=== PATIENT | male | born 1960 | race Caucasian/White ===

== ENCOUNTER 2017-05-21 21:20 | Emergency (ER) | payer MEDICARE ==
[2014-03-29 12:51] VITALS: BMI 26.6
[~2017-05-21 21:20] MED LIST: HYDROCODONE-APA1 TAB PO; NEXIUM40 MG PO; PRAVACHOL40 MG PO; VIIBRYD40 MG PO
[2017-05-21 23:05] LABS: BASOPHILS 0.5 % (0-2); EOSINOPHILS 6.4 % (0-7); HEMATOCRIT 42.3 % (42.0-54.0); HEMOGLOBIN 13.6 g/dL (13.5-17.5); IMMATURE GRANULOCYTES 0.1 % (0-5); LYMPHOCYTES 12.9 % (15-50); MCH 28.1 pg (26.0-34.0); MCHC 32.2 g/dL (31.0-37.0); MCV 87.4 fL (80.0-100.0); MEAN PLATELET VOLUME 10.8 fL (7.4-10.4); MONOCYTES 9.1 % (2-11); PLATELET COUNT 233 10x3/uL (130-400); RBC 4.84 10x6/uL (4.20-6.10); RDW 14.9 % (11.5-14.5); WBC 7.9 10x3/uL (4.8-10.8)
[2017-05-21 23:29] LABS: ALBUMIN 3.7 g/dL (3.4-5.0); ANION GAP 11.6 mmol/L (8-16); BILIRUBIN - TOTAL 0.29 mg/dL (0.2-1.3); CALCIUM 8.6 mg/dL (8.5-10.1); CARBON DIOXIDE 28.9 mmol/L (21.0-32.0); CREATININE - SERUM 1.1 mg/dL (0.6-1.3); POTASSIUM - SERUM 3.5 mmol/L (3.5-5.1); PROTEIN - SERUM 7.6 g/dL (6.4-8.2)
== END 2017-05-22 00:08 | disposition home or self-care (01) ==
LOC: D.ER 21:20
PROVIDERS: Physician Assistant Medical
DX: S00.03XA Contusion of scalp, initial encounter (principal); W19.XXXA Unspecified fall, initial encounter; Y93.89 Activity, other specified; Y92.89 Other specified places as the place of occurrence of the external cause; R42 Dizziness and giddiness; F17.200 Nicotine dependence, unspecified, uncomplicated; I10 Essential (primary) hypertension; Z87.820 Personal history of traumatic brain injury

== ENCOUNTER 2017-12-15 23:04 | Outpatient (CLI) | payer MEDICARE ==
--- NOTE | ~2017-12-15 | HEMODYNAMI ---
PATIENT:REJI BURLESON MEDICAL RECORD: [id number] : 58 [facility]# [id number] ADMISSION DATE: 12/16/17 Generatedon:12/16/201712:43 Patient name: REJI BURLESON Patient #: [id number] SSN: [id number] : 1960 Date of study: 12/16/2017 Page: Of Hemodynamic Procedure Report Patient Data Patient Demographics Procedure consent was obtained First Name: REJI Gender: Male Last Name: SARAH BETH : 1960 Middle Initial: JOCELYNE Age: 57 year(s) Patient #: [id number] Race: SSN: [id number] Additional ID: [id number] Contact details Address: [address] [place] [address] State: [place] City: [facility] Zip code: [address] Admission Admission Data Admission Date: 12/16/2017 Admission Time: 2:59 Arrival Date: 12/16/2017 Arrival Time: 2:59 Admit Source: Other Insurance Payor: Medicare Room #: D.E15 Lab Results Lab Result Date: 12/16/2017 Lab Result Time: 0:00 Biochemistry Name Units Result Min Max BUN mg/dl 15 --(--*-)-- 7 18 Creatinine mg/dl 1.1 --(--*-)-- 0.6 1.3 CBC Name Units Result Min Max Hemoglobin g/dl 12.9 -*(----)-- 13.5 17.5 Coagulation Name Units Result Min Max INR units 0.99 --(-*--)-- 0.85 1.17 PT sec 12.7 --(-*--)-- 11.6 15 PTT sec 26.6 --(*---)-- 22.8 39.4 Procedure Procedure Types Cath Procedure Diagnostic Procedure C [facility] w/Coronaries Sedation Charges Moderate Sedation up to 15 minutes PCI Procedure Coronary Stent Coronary Stent Initial Procedure Description Procedure Date Procedure Date: 12/16/2017 Procedure Start Time: 12:26 Procedure End Time: 12:40 Procedure Staff Name Function Gerry Young MD Performing Physician Katie Mariee RT Monitor Summer Pitts RN Nurse Lary Chavarria RT Scrub Procedure Data Cath Procedure Fluoroscopy Diagnostic fluoroscopy Total fluoroscopy Time: 3.7 time: 3.7 min min Diagnostic fluoroscopy Total fluoroscopy dose: dose: 1007 mGy 1007 mGy Contrast Material Contrast Material Type Amount (ml) Isovue 300 88 Entry Location Entry Primary Successful Side Size Upsize Upsize Entry Closure Succes sful Closure Location (Fr) 1 (Fr) 2 (Fr) Remarks Device Remarks Femoral Right 5 Fr 6 Fr Exoseal artery Short Estimated blood loss: 5 ml Diagnostic catheters Device Type Used For End Catheter Placement MULTIPACK Pigtail 5 Fr LV Angiography catheter MULTIPACK JL 4.0 5Fr Left Coronary catheter Angiography MULTIPACK 3DRC 5Fr Right Coronary catheter Angiography Procedure Complications No complications Procedure Medications Medication Administration Route Dosage Oxygen NC 2 l/min Lidocaine 2% added to field 20 Heparin Flush Bag added to field 2 bags (1000units/500ml NS) 0.9% NaCl I.V. 100 ml/hr Versed I.V. 1 mg Fentanyl I.V. 50 mcg Ativan 1 mg Heparin Bolus I.V. 4000 units Versed I.V. 1 mg Fentanyl I.V. 50 mcg Hemodynamics Rest HGB: 12.9 (g/dl) Heart Rate: 90 (bpm) Pressure Samples Time Site Value (mmHg) Purpose Heart Use Rate(bpm) 12:27 LV 93/15,22 Snapshot 87 Snapshots Pre Cath Intra NCS Post Cath Vital Signs Time Heart Resp SPO2 etCO2 NIBP (mmHg) Rhythm Pain Sedation Rate (ipm) (%) (mmHg) Status Level (bpm) 12:10:00 83 12 100 0 159/107(138) NSR 0 (11) 10(A) , No pain 12:14:20 87 15 98 9.8 147/109(123) NSR 0 (11) 10(A) , No pain 12:18:34 88 16 98 0 149/110(134) NSR 0 (11) 10(A) , No pain 12:22:50 89 15 98 25.6 143/106(119) NSR 0 (11) 9(A) , No pain 12:26:51 89 16 98 13.5 130/108(126) NSR 0 (11) 9(A) , No pain 12:31:01 88 15 97 9 143/93(133) NSR 0 (11) 9(A) , No pain 12:35:13 89 15 97 10.5 149/111(128) NSR 0 (11) 9(A) , No pain 12:40:23 95 17 96 28.6 140/95(115) NSR 0 (11) 10(A) , No pain Medications Time Medication Route Dose Verified Delivered Reason Notes Effectiveness by by 11:56:54 Oxygen NC 2 Gerry Buffie used for l/min Hannah Pitts RN procedure 11:57:00 Lidocaine 2% added 20ml Gerry Gerry for local to vial Hannah Young MD anesthetic field 11:57:06 Heparin Flush added 2 Gerry Gerry used for Bag to bags Hannah Young MD procedure (1000units/500ml field NS) 11:57:15 0.9% NaCl I.V. 100 Gerry Patelie Per physician ml/hr Hannah Pitts RN 12:18:11 Versed I.V. 1 mg Gerry Buffie for sedation Hannah Pitts RN 12:18:16 Fentanyl I.V. 50 Gerry Buffie for sedation mcg Hannah Pitts RN 12:25:53 Ativan IV 1 mg Gerry Buffie Per physician for Hannah Pitts RN possible DT's per spouse. 12:32:56 Heparin Bolus I.V. 4000 Gerry Buffie for verifi ed units Hannah Pitts RN anticoagulation with dr young 12:33:18 Versed I.V. 1 mg Gerry Buffie for sedation Hannah Pitts RN 12:33:22 Fentanyl I.V. 50 Gerry Buffie for sedation mcg Hannah Pitts RN Procedure Log Time Note 11:40:59 Lab Result : BUN 15 mg/dl 11:40:59 Lab Result : PT 12.7 sec 11:40:59 Lab Result : Hemoglobin 12.9 g/dl 11:40:59 Lab Result : Creatinine 1.1 mg/dl 11:40:59 Lab Result : INR 0.99 units 11:40:59 Lab Result : PTT 26.6 sec 11:41:36 Diagnostic Cath status Elective 11:41:38 Katie Mariee RT(R) sent for patient. Start room use. 11:41:39 Time tracking: Regular hours 11:41:44 Plan of Care:Hemodynamics will remain stable., Cardiac rhythm will remain stable., Comfort level will be maintained., Respiratory function will remain adequate., Patient/ family verbilizes understanding of procedure., Procedure tolerated without complication., Recovers from procedure without complications.. 11:50:33 Informed consent obtained and on chart 11:50:50 Admit Source: Other 11:50:52 Arrival Date: 12/16/2017 2:59:00 AM 11:51:22 Insurance Payor : Medicare 11:56:54 Oxygen 2 l/min NC was administered by Summer Pitts RN; used for procedure; 11:57:00 Lidocaine 2% 20ml vial added to field was administered by Gerry Young MD; for local anesthetic; 11:57:06 Heparin Flush Bag (1000units/500ml NS) 2 bags added to field was administered by Gerry Young MD; used for procedure; 11:57:15 0.9% NaCl 100 ml/hr I.V. was administered by Summer Pitts RN; Per physician; 12:08:42 Patient received from ED to CCL 2 Alert and oriented. Tansferred to table in Supine position. 12:08:46 Warm blankets applied, and gwen hugger turned on for patient comfort. 12:08:46 Correct patient and procedure confirmed by team. 12:08:48 ECG and BP/O2 sat monitors applied to patient. 12:08:50 Vital chart was started 12:08:52 Baseline sample Acquired. 12:08:59 Rhythm: sinus rhythm 12:09:01 Full Disclosure recording started 12:09:05 H&P Date Dictated: 12/16/2017 New H&P dictated by physician.. 12:09:06 Pre-procedure instructions explained to patient. 12:09:07 Pre-op teaching completed and patient verbalized understanding. 12:09:08 Family in waiting room. 12:09:10 Patient NPO since Midnight. 12:09:19 Is the patient allergic to Iodine/contrast media? No. 12:09:20 Was the patient premedicated? No 12:09:22 Is patient on blood thinner?Yes 12:09:24 Patient diabetic? No. 12:09:26 Previous problem with sedation/anesthesia? No ? 12:09:30 Snore? Yes 12:09:32 Sleep apnea? No 12:09:33 Deviated septum? No 12:09:34 Opens mouth fully? Yes 12:09:34 Sticks out tongue? Yes 12:09:38 Airway obstruction? No ? 12:09:41 Dentures? No ? 12:09:46 Pre procedure: right dorsailis pedis pulse 1+ Palpable, but thready & weak; easily obliterated 12:09:48 Pre procedure: left dorsailis pedis pulse 1+ Palpable, but thready & weak; easily obliterated 12:09:53 Patient pain scale 0/10 ?. 12:10:25 IV patent on arrival in left antecubital with 0.9% NaCl at [facility]. 12:10:27 Lab results completed and on chart. 12:10:33 Right groin area was prepped with chlora-prep and draped in sterile fashion 12:10:34 Alarms reviewed by R. N. 12:10:34 Sharps counted by scrub and verified by R.N. 12:16:00 Physician arrived 12:16:01 --------ALL STOP TIME OUT------ 12:16:01 Final Timeout: patient, procedure, and site verified with staff and physician. All members of the team are in agreement. 12:16:03 Right groin site verified by team. 12:16:05 Physical assessment completed. ASA score P 2 - A patient with mild systemic disease as per Gerry Young MD. 12:16:08 Sedation plan: IV Moderate Sedation Medication:Versed, Fentanyl 12:16:16 Use device set Femoral Dx 12:16:17 ACIST Syringe (93160) opened to sterile field. 12:16:22 Bag Decanter (2002S) opened to sterile field. 12:16:23 Medline Cath Pack (FRDT10770) opened to sterile field. 12:16:23 SHEATH 5FR [place] (QWN874) opened to sterile field. 12:16:24 DIAGNOSTIC WIRE .035 260cm J wire (891629) opened to sterile field. 12:16:25 ACIST Hand Control (81251) opened to sterile field. 12:16:26 ACIST Manifold (03981) opened to sterile field. 12:16:27 DIAGNOSTIC Multipack 5Fr catheter set (DG8425) opened to sterile field. 12:18:11 Versed 1 mg I.V. was administered by Summer Pitts RN; for sedation; 12:18:16 Fentanyl 50 mcg I.V. was administered by Summer Pitts RN; for sedation; 12:20:32 Zero performed for pressure channel P1 12:25:53 Ativan 1 mg IV was administered by Summer Pitts RN; Per physician; for possible DT's per spouse. 12:26:07 Procedure started. 12:26:12 Local anesthetic to right femoral artery with Lidocaine 2% by Gerry Young MD.INITIAL ACCESS ONLY 12:26:23 A 5 Fr sheath was inserted into the Right Femoral artery 12:26:36 A MULTIPACK Pigtail 5 Fr catheter was advanced over the wire and used for LV Angiography. 12:27:39 LV hemodynamics recorded. 12:27:40 LV gram done using SETH 12::43 Injector settings: Ml/sec: 5, Volume: 15, 12:27:53 EF : 40 % 12:27:59 Catheter removed. 12:28:10 A MULTIPACK JL 4.0 5Fr catheter was advanced over the wire and used for Left Coronary Angiography. 12:28:49 LCA angiography performed. 12::53 Injector settings: Ml/sec: 3, Volume: 6, 12:30:30 Catheter removed. 12:30:37 A MULTIPACK 3DRC 5Fr catheter was advanced over the wire and used for Right Coronary Angiography. 12:31:32 RCA angiography performed. 12:31:35 Injector settings: Ml/sec: 3, Volume: 6, 12:31:41 Catheter removed. 12:31:48 Proceeding to intervention. 12:32:09 SHEATH 6FR [place] (MRX654) opened to sterile field. 12:32:10 INFLATOR Merit BasixCompak (KN5892) opened to sterile field. 12:32:42 GUIDE 6FR XB 4.0 catheter ([id number]) opened to sterile field. 12:32:44 CHOICE PT Extra Support 182cm wire ([id number]) opened to sterile field. 12:32:56 Heparin Bolus 4000 units I.V. was administered by Summer Pitts RN; for anticoagulation; verified with dr young 12:33:10 Sheath upsized to a 6 Fr Short. 12:33:15 6 Fr xb 4 guide catheter was inserted over the wire 12:33:18 Versed 1 mg I.V. was administered by Summer Pitts RN; for sedation; 12:33:21 choice pt wire advanced. 12:33:22 Fentanyl 50 mcg I.V. was administered by Summer Pitts RN; for sedation; 12:35:54 Inflation Number: 1 A INTEGRITY RX 2.75 x 14 stent ([id number]) was prepped and advanced across the Mid CX. The stent was deployed at 19 MALCOLM for 0:10 (min:sec). 12:36:03 Stent catheter was removed intact over wire. 12:36:04 Wire removed. 12:36:05 Guide catheter removed. 12:36:17 EXOSEAL 6Fr (EX600) opened to sterile field. 12:37:56 Sheath removed intact; hemostasis achieved with Exoseal to the Right Femoral artery. 12:37:57 Procedure ended.(Physican Out) 12:38:14 Fluoroscopy time 03.70 minutes. 12:38:27 Fluoroscopy dose: 1007 mGy 12:38:27 Flurop Dose total: 1007 12:38:31 Contrast amount:Isovue 300 88ml. 12:38:33 Sharps counted by scrub and verified by R.N. 12:38:34 Insertion/operative site no bleeding no hematoma. 12:38:40 Post-op/insertion site Right Femoral artery dressed using a 4 x 4 and Tegaderm. 12:38:43 Post right femoral artery:stable 12:38:47 Post procedure rhythm: unchanged. 12:38:51 Estimated blood loss: 5 ml 12:38:52 Post procedure instruction explained to patient.Patient verbalizes understanding. 12:38:53 Patient needs reinforcement of post procedure teaching. 12:39:10 Procedure type changed to Cath procedure, Diagnostic procedure, LHC, LHC w/Coronaries, Sedation Charges, Moderate Sedation up to 15 minutes, PCI procedure, Coronary Stent, Coronary Stent Initial 12:39:11 Procedure and supply charges have been captured, reviewed, submitted and are correct. 12:39:15 Procedure Complication : No complications 12:39:17 Vital chart was stopped 12:39:17 See physician's report for complete and final results. 12:39:28 Report given to Med II. 12:39:57 Patient transfered to Pre/Post Procedure Room with Stretcher. 12:39:59 Procedure ended. 12:39:59 Full Disclosure recording stopped 12:40:06 ACC-PCI Only Patient was given prescriptions, or instructed by Gerry Young MD to start/continue the following medications upon discharge: Plavix 12:40:08 End room use (Document Last) Intervention Summary Intervention Notes Time ActionType Lesion and Equipment Action# Pressure Duration Attributes Used 12:35:54 Place stent Mid CX INTEGRITY RX 1 19 00:10 2.75 x 14 stent ([id number]) Device Usage Item Name Manufacture Quantity Catalog Number Hospital Part Current Mini mal Lot# / Charge Number Stock Stock Serial# Code ACIST Acist 1 87599 505595 477024 031250 20 Syringe Medical (50637) Systems Inc Bag Decanter Microtek 1 2001S 096002 38794 831332 5 (2001S) Medical Inc. Medline Cath Cardinal 1 [id number] 234364 00807 157258 5 Pack Health ([id number]) SHEATH 5FR Terumo 1 ADC766 982193 673221 760296 40 [place] (OIZ605) DIAGNOSTIC St Jeremy 1 087116 577393 761693 689988 30 WIRE .035 260cm J wire (478281) ACIST Hand Acist 1 43782 572759 064218 653523 5 Control Medical (51909) Systems Inc ACIST Acist 1 79271 656487 274416 310274 5 Manifold Medical (19789) Systems Inc DIAGNOSTIC Cardinal 1 FW0229 818506 93848 644128 30 Multipack Health 5Fr catheter set (EZ0908) MULTIPACK Cardinal 1 759912 5 Pigtail 5 Fr Health catheter MULTIPACK JL Cardinal 1 771776 5 4.0 5Fr Health catheter MULTIPACK Cardinal 1 966775 5 3DRC 5Fr Health catheter SHEATH 6FR Terumo 1 YSH824 735970 634890 707565 40 [place] (RCH090) INFLATOR Merit 1 EY3560 463517 554163 469398 15 [employer]tafield Technology Medical BasixCompak (HY1771) GUIDE 6FR XB Cardinal 1 [id number] 955064 078632 384504 2 4.0 catheter Health (38017007) CHOICE PT Scurry 1 [id number] 471716 191884 471933 5 Extra Scientific Support 182cm wire ([id number]) INTEGRITY RX Medtronic 1 [id number] 458588 894296 994910 5 [id number] 2.75 x 14 stent ([id number]) EXOSEAL 6Fr Cardinal 1 EX600 924358 696871 984967 10 (EX600) Health Signature Audit Barto Stage Time Signature Unsigned Intra-Procedure 12/16/2017 Katie Mariee 12:43:48 PM RT(R) Signatures Monitor : Katie Mariee RT Signature : Date : Time : [id number] [place] [address]
--- NOTE | ~2017-12-15 | OP ---
PATIENT NAME: REJI BURLESON MEDICAL RECORD: [id number] :58 LOCATION:D.CAT ADMISSION DATE: SURGEON: ANASTACIA DAVIS MD DATE OF OPERATION: 12/16/2017 PROCEDURES: 1. PTCA stent left circumflex. 2. Left heart catheterization. 3. Selective coronary angiography. 4. Left ventriculogram. INDICATION: Angina and coronary artery disease. DESCRIPTION OF PROCEDURE: After informed consent was obtained and after detailed description of risks, benefits as well as alternative therapies, the patient elected to proceed with angiogram and angioplasty. The right femoral area was prepped and draped in normal sterile fashion. Right femoral artery was cannulated via modified Seldinger technique with placement of 6-[place] sheath. All catheters exchanged through this sheath. FINDINGS: The left ventriculogram was performed in standard 30-degree SETH view, reveals apical hypokinesis. Overall ejection fraction 35% to 40%. SELECTIVE CORONARY ANGIOGRAPHY: 1. Left main is with no significant angiographic disease. 2. Left anterior descending has a 95% stenosis in the mid vessel. 3. The left circumflex has 80% stenosis in the mid distal vessel. 4. Right coronary artery has 90% stenosis followed by 95% stenosis. PTCA STENT OF LEFT CIRCUMFLEX: The stent used was a 2.75 x 14 mm Integrity. Result was 0% residual stenosis. OVERALL IMPRESSION: Successful percutaneous transluminal angioplasty stent of the left circumflex going from 80% initial stenosis to 0% residual. PLAN: PTCA stent of the LAD and RCA in the near future. TRANSINT:[id number] Voice Confirmation ID: [id number] DOCUMENT ID: [id number] ANASTACIA DAVIS MD at 1056 CC: [id number] DICTATION DATE: 01/12/18 1057 ACUTE SPECIALIST: 01/12/18 1303 DEP CLI 12/16/17 [place] [id number]
[2017-12-15 23:31] LABS: HEMATOCRIT 42.5 % (42.0-54.0); HEMOGLOBIN 12.9 g/dL (13.5-17.5); LYMPHOCYTES 10.4 % (15-50); MCH 24.1 pg (26.0-34.0); MCHC 30.4 g/dL (31.0-37.0); MCV 79.3 fL (80.0-100.0); MEAN PLATELET VOLUME 9.8 fL (7.4-10.4); NEUTROPHILS 78.5 % (40-80); PLATELET COUNT 197 10x3/uL (130-400); RBC 5.36 10x6/uL (4.20-6.10); RDW 16.9 % (11.5-14.5); WBC 9.5 10x3/uL (4.8-10.8)
[2017-12-15 23:37] LABS: APTT 26.6 SECONDS (22.8-39.4); INR 0.99 (0.85-1.17); PROTIME 12.7 SECONDS (11.6-15.0)
[2017-12-15 23:38] LABS: D-DIMER-QUANTITATIVE 0.41 ug/mLFEU (0.20-0.54)
[2017-12-15 23:41] LABS: ALKALINE PHOSPHATASE 118 U/L (46-116); ALT (SGPT) 32 U/L (10-68); CALC OSMOLALITY 278 mosm/kg (275-300); CALCIUM 9.2 mg/dL (8.5-10.1); CARBON DIOXIDE 22.9 mmol/L (21.0-32.0); CHLORIDE - SERUM 100 mmol/L (98-107); CREATININE - SERUM 1.1 mg/dL (0.6-1.3); GLUCOSE 132 mg/dL (74-106); POTASSIUM - SERUM 3.4 mmol/L (3.5-5.1); PROTEIN - SERUM 8.1 g/dL (6.4-8.2); SODIUM 138 mmol/L (136-145); UREA NITROGEN 15 mg/dL (7-18); eGFR NON AFRICAN AMERICAN 73 mL/min (90-120)
[2017-12-15 23:57] LABS: AMYLASE - SERUM 184 U/L (25-115); CHOL - HDL RATIO 4.1 ratio (2.3-4.9); CHOLESTEROL, TOTAL 268 mg/dL (0-200); CKMB 4.8 U/L (0.0-3.6); CREATINE KINASE 268 UL (21-232); HDL CHOLESTEROL 65 mg/dL (32-96); LDL CHOLESTEROL 151 mg/dL (0-100); LDL-HDL RATIO 2.3 ratio (1.5-3.5); LIPASE 186 U/L (73-393); PRO BNP 690 pg/mL (0-125); TRIGLYCERIDE 262 mg/dL (30-200)
[2017-12-15 23:59] LABS: TROPONIN-I 0.422 ng/mL (0.000-0.060)
[2017-12-16 00:45] LABS: UDS - AMPHET NEGATIVE QUAL (NEGATIVE); UDS - BARB NEGATIVE QUAL (NEGATIVE); UDS - BENZO NEGATIVE QUAL (NEGATIVE); UDS - COCAINE NEGATIVE QUAL (NEGATIVE); UDS - OPIATE NEGATIVE QUAL (NEGATIVE); UDS - PCP NEGATIVE QUAL (NEGATIVE); UDS - THC POSITIVE QUAL (NEGATIVE)
[2017-12-16 04:22] LABS: CKMB 9.9 U/L (0.0-3.6); CREATINE KINASE 281 UL (21-232)
[2017-12-16 04:28] LABS: TROPONIN-I 1.134 ng/mL (0.000-0.060)
[2017-12-16 08:27] VITALS: BMI 26.6
[2017-12-16 09:20] LABS: BASOPHILS 0.5 % (0-2); EOSINOPHILS 2.3 % (0-7); HEMATOCRIT 38.9 % (42.0-54.0); HEMOGLOBIN 11.8 g/dL (13.5-17.5); IMMATURE GRANULOCYTES 0.1 % (0-5); LYMPHOCYTES 12.2 % (15-50); MCH 24.6 pg (26.0-34.0); MCHC 30.3 g/dL (31.0-37.0); MEAN PLATELET VOLUME 11.3 fL (7.4-10.4); MONOCYTES 9.8 % (2-11); NEUTROPHILS 75.1 % (40-80); PLATELET COUNT 219 10x3/uL (130-400); RDW 17.1 % (11.5-14.5); WBC 9.5 10x3/uL (4.8-10.8)
[2017-12-16 09:29] LABS: ANION GAP 13.8 mmol/L (8-16); CARBON DIOXIDE 25.8 mmol/L (21.0-32.0); CREATININE - SERUM 1.2 mg/dL (0.6-1.3); POTASSIUM - SERUM 3.6 mmol/L (3.5-5.1)
[2017-12-16 10:46] LABS: CKMB 57.5 U/L (0.0-3.6); CREATINE KINASE 582 UL (21-232); TROPONIN-I 4.179 ng/mL (0.000-0.060)
[2017-12-16] MEDS ORDERED: PLAVIX75 MG PO (13:08)
== END 2017-12-16 17:20 | disposition home or self-care (01) ==
LOC: OBSVTIME → D.ER 23:04 → D.CATH 23:04 → D.EDHOLD 12-16 02:59 → D.ER 12-16 02:59 → OBSVTIME 12-16 02:59 → D.SDCHOLD 12-16 11:38 → D.EDHOLD 12-16 11:38 → EDSTATUS 12-16 12:30 → D.EDHOLD 12-16 17:20 → D.CATH 12-16 17:20
PROVIDERS: Family Medicine; Internal Medicine Interventional Cardiology
DX: I24.9 Acute ischemic heart disease, unspecified (principal); R07.9 Chest pain, unspecified; I10 Essential (primary) hypertension; Z01.812 Encounter for preprocedural laboratory examination

== ENCOUNTER → 2018-03-11 14:45 | Outpatient (CLI) | payer MEDICARE ==
[~2018-03-11 14:45] MED LIST changes: +PLAVIX75 MG PO
== END | disposition home or self-care (01) ==
LOC: D.LABREF 14:45
DX: L98.8 Other specified disorders of the skin and subcutaneous tissue (principal)

== ENCOUNTER 2018-06-10 08:06 | Outpatient (CLI) | payer MEDICARE ==
[~2018-06-10] VITALS: Ht 177.8 cm; Wt 78.2 kg
--- NOTE | ~2018-06-10 | HEMODYNAMI ---
PATIENT:REJI BURLESON MEDICAL RECORD: [id number] : 58 LOCATION:D.CAT ADMISSION DATE: 06/10/18 Generatedon:06/10/201810:40 Patient name: REJI BURLESON Patient #: [id number] SSN: [id number] : 1960 Date of study: 06/10/2018 Page: Of Hemodynamic Procedure Report Patient Data Patient Demographics Procedure consent was obtained First Name: REJI Gender: Male Last Name: SARAH BETH : 1960 [facility] Initial: JOCELYNE Age: 58 year(s) Patient #: [id number] Race: SSN: [id number] Additional ID: [id number] Contact details Address: [address] [place] [address] State: [place] City: [facility] Zip code: [address] Past Medical History Allergies Allergen Reaction Date Comments Reported Other allergy 06/10/2018 effexor Admission Admission Data Admission Date: 06/10/2018 Admission Time: 8:06 Procedure Procedure Types Cath Procedure Diagnostic Procedure [facility] w/Coronaries PCI Procedure Coronary Stent Coronary Stent Initial PTCA PTCA Initial Procedure Description Procedure Date Procedure Date: 06/10/2018 Procedure Start Time: 10:12 Procedure End Time: 10:39 Procedure Staff Name Function Gerry Young MD Performing Physician Sujit Jackson RT Looseleaf Binder Coverer Lary Chavarria RT Monitor Summer Pitts RN Nurse Heriberto Glez RN Nurse Katie Mariee RT Scrub Procedure Data Cath Procedure Fluoroscopy Diagnostic fluoroscopy Total fluoroscopy Time: time: 10.3 min 10.3 min Diagnostic fluoroscopy Total fluoroscopy dose: 953 dose: 953 mGy mGy Contrast Material Contrast Material Type Amount (ml) Isovue 300 130 Entry Location Entry Primary Successful Side Size Upsize Upsize Entry Closure Succes sful Closure Location (Fr) 1 (Fr) 2 (Fr) Remarks Device Remarks Femoral Right 6 Fr Exoseal artery Short Estimated blood loss: 10 ml Diagnostic catheters Device Type Used For End Catheter Placement MULTIPACK Pigtail 5 Fr Procedure catheter MULTIPACK JL 4.0 5Fr Procedure catheter MULTIPACK 3DRC 5Fr Procedure catheter Procedure Complications No complications Procedure Medications Medication Administration Route Dosage 0.9% NaCl I.V. 100 ml/hr Oxygen etCO2 Nasal cannula 2 l/min Heparin Flush Bag added to field 2 bags (1000units/500ml NS) Lidocaine 2% added to field 20 Versed I.V. 1 mg Fentanyl I.V. 50 mcg Heparin Bolus I.V. 4000 units Hemodynamics Rest Heart Rate: 85 (bpm) Snapshots Pre Cath Intra NCS Post Cath Vital Signs Time Heart Resp SPO2 etCO2 NIBP (mmHg) Rhythm Pain Sedation Rate (ipm) (%) (mmHg) Status Level (bpm) 9:21:14 87 16 96 126/94(107) NSR 0 (11) 10(A) , No pain 9:25:30 77 14 96 134/92(114) NSR 0 (11) 10(A) , No pain 9:29:44 79 20 96 134/96(105) NSR 0 (11) 10(A) , No pain 9:33:59 84 26 97 140/99(105) NSR 0 (11) 10(A) , No pain 9:38:16 86 22 97 134/99(111) NSR 0 (11) 10(A) , No pain 9:42:35 85 21 96 28.6 134/97(105) NSR 0 (11) 10(A) , No pain 9:46:53 85 21 97 19.6 133/95(110) NSR 0 (11) 10(A) , No pain 9:51:13 81 14 95 33.1 124/88(102) NSR 0 (11) 10(A) , No pain 9:55:29 80 11 95 0 122/77(100) NSR 0 (11) 10(A) , No pain 9:59:45 76 12 95 0 123/84(100) NSR 0 (11) 10(A) , No pain 10:03:57 73 11 95 0 123/81(96) NSR 0 (11) 10(A) , No pain 10:08:11 75 12 96 0 123/83(97) NSR 0 (11) 10(A) , No pain 10:12:23 78 16 97 31.6 121/89(114) NSR 0 (11) 9(A) , No pain 10:16:37 78 13 95 33.1 130/88(114) NSR 0 (11) 9(A) , No pain 10:20:55 79 12 96 16.5 123/86(101) NSR 0 (11) 9(A) , No pain 10:25:07 78 12 97 0 121/89(103) NSR 0 (11) 10(A) , No pain 10:29:17 81 13 96 31.6 132/93(106) NSR 0 (11) 10(A) , No pain 10:33:37 83 13 98 19.5 130/90(111) NSR 0 (11) 10(A) , No pain 10:37:55 80 14 98 29.3 130/91(111) NSR 0 (11) 10(A) , No pain Medications Time Medication Route Dose Verified Delivered Reason Notes Effectiveness by by 9:43:14 0.9% NaCl I.V. 100 Heriberto Heriberto Per physician ml/hr Amaris Glez RN RN 9:43:25 Oxygen etCO2 2 Heriberto Heriberto Per physician Nasal l/min Amaris Glez cannula RN RN 9:43:35 Heparin Flush added 2 Heriberto Heriberto used for Bag to bags Amaris Glez procedure (1000units/500ml field DUNN RN NS) 9:43:45 Lidocaine 2% added 20ml Heriberto Heriberto for local to vial Amaris Glez anesthetic field DUNN RN 10:12:20 Versed I.V. 1 mg Heriberto Heriberto for sedation Amaris Glez RN RN 10:12:29 Fentanyl I.V. 50 Heriberto Heriberto for sedation mcg Amaris Glez RN RN 10:19:05 Heparin Bolus I.V. 4000 Heriberto Heriberto for units Amaris Glez anticoagulation RN wastewater project manager Log Time Note 9:19:41 Diagnostic Cath status Elective 9:19:43 Sujit CARDOZA(R) sent for patient. Start room use. 9:19:45 Time tracking: Regular hours (M-F 7:00 - 5:00) 9:19:49 Plan of Care:Hemodynamics will remain stable., Cardiac rhythm will remain stable., Comfort level will be maintained., Respiratory function will remain adequate., Patient/ family verbilizes understanding of procedure., Procedure tolerated without complication., Recovers from procedure without complications.. 9:19:55 Patient received from Pre/Post Procedure Room to CCL 3 Alert and oriented. Tansferred to table in Supine position. 9:19:58 Warm blankets applied, and gwen hugger turned on for patient comfort. 9:19:58 Correct patient and procedure confirmed by team. 9:20:00 Signed procedure consent form obtained from patient. 9:20:01 ECG and BP/O2 sat monitors applied to patient. 9:20:02 Vital chart was started 9:20:04 Baseline sample Acquired. 9:20:10 Rhythm: sinus rhythm 9:20:12 Full Disclosure recording started 9:20:26 H&P Date Dictated: 06/03/2018 Within 30 days and on chart., H&P Addendum completed by physician on day of procedure. (MUST COMPLETE FOR ALL OUTPATIENTS). 9:20:27 Pre-procedure instructions explained to patient. 9:20:30 Family in waiting room. 9:20:32 Patient NPO since Midnight. 9:20:53 Patient allergic to Other allergyeffexor 9:20:56 Is the patient allergic to Iodine/contrast media? No. 9:20:57 Was the patient premedicated? Yes 9:20:58 Is patient on blood thinner?Yes 9:21:03 ACC The patient was administered the following blood thiners within the last 24 hours: ACCPlavix 9:23:16 Patient diabetic? No. 9:23:25 Snore? Yes 9:23:26 Sleep apnea? No 9:23:34 Dentures? No ? 9:23:40 Patient pain scale 0/10 ?. 9:24:18 IV patent on arrival in left forearm with 0.9% NaCl at [facility]. 9:24:23 Lab results completed and on chart. 9:24:28 Right groin area was prepped with chlora-prep and draped in sterile fashion 9::29 Alarms reviewed by R. N. 9:24:29 Sharps counted by scrub and verified by R.N. 9:24:31 Physician paged 9:43:14 0.9% NaCl 100 ml/hr I.V. was administered by Heriberto Glez RN; Per physician; 9:43:25 Oxygen 2 l/min etCO2 Nasal cannula was administered by Heriberto Glez RN; Per physician; 9:43:35 Heparin Flush Bag (1000units/500ml NS) 2 bags added to field was administered by Heriberto Glez RN; used for procedure; 9:43:45 Lidocaine 2% 20ml vial added to field was administered by Heriberto Glez RN; for local anesthetic; 9:47:41 Zero performed for pressure channel P1 9:47:54 Zero performed for pressure channel P1 10::54 Physician arrived 10::54 --------ALL STOP TIME OUT------ 10::55 Final Timeout: patient, procedure, and site verified with staff and physician. All members of the team are in agreement. 10:11:58 Right groin site verified by team. 10:12:03 Physical assessment completed. ASA score P 2 - A patient with mild systemic disease as per Gerry Young MD. 10:12:07 Sedation plan: IV Moderate Sedation Medication:Versed, Fentanyl 10:12:15 Use device set Femoral Dx 10:12:20 Versed 1 mg I.V. was administered by Heriberto Glez RN; for sedation; 10:12:21 Procedure started. 10:12:29 Fentanyl 50 mcg I.V. was administered by Heriberto Glez RN; for sedation; 10:12:39 Local anesthetic to right femoral artery with Lidocaine 2% by Gerry Young MD.INITIAL ACCESS ONLY 10:12:49 A 6 Fr Short sheath was inserted into the Right Femoral artery 10:12:52 ACIST Syringe (72989) opened to sterile field. 10:12:52 Bag Decanter (2002) opened to sterile field. 10:12:52 Medline Cath Pack ([id number]) opened to sterile field. 10:12:53 DIAGNOSTIC WIRE .035 260cm J wire (595849) opened to sterile field. 10:12:54 ACIST Hand Control (53358) opened to sterile field. 10:12:54 ACIST Manifold (44526) opened to sterile field. 10:12:56 DIAGNOSTIC Multipack 5Fr catheter set (CG8789) opened to sterile field. 10:12:56 Tegaderm 4 x 4 (1626W) opened to sterile field. 10:12:57 PERCUTANEOUS ENTRY 19GA needle opened to sterile field. 10:13:53 A MULTIPACK Pigtail 5 Fr catheter was advanced over the wire and used for Procedure. 10:13:56 LV angiography performed. 10:14:04 EF : 30 % 10:14:09 Catheter removed. 10:14:18 A MULTIPACK JL 4.0 5Fr catheter was advanced over the wire and used for Procedure. 10:14:27 SHEATH Prelude 6Fr 0.035 (JLK-2I-20-035) opened to sterile field. 10:14:28 INFLATOR Merit BasixCompak (XU7991) opened to sterile field. 10:15:46 A MULTIPACK 3DRC 5Fr catheter was advanced over the wire and used for Procedure. 10:15:57 RCA angiography performed. 10:16:34 CHOICE PT Extra Support J 300cm guide wire ([id number]) opened to sterile field. 10:16:44 GUIDE 6FR XBLAD 4.0 catheter ([id number]) opened to sterile field. 10:18:20 Catheter removed. 10:18:22 Proceeding to intervention. 10:18:34 6 Fr XBLAD4 guide catheter was inserted over the wire 10:18:53 Choice ex wire advanced. 10:19:05 Heparin Bolus 4000 units I.V. was administered by Heriberto Glez RN; for anticoagulation; 10:24:17 Inflate balloon Inflation number: 1 A EMERGE OTW 1.5 x 20 balloon ([id number]) was prepped and advanced across the Dist RCA1, then inflated to 17 MALCOLM for 0:00 (min:sec). 10:24:48 changing guide to right coronary 10:25:02 GUIDE 6FR AR 2.0 SH catheter ([id number]) opened to sterile field. 10:25:17 6 Fr AR2 guide catheter was inserted over the wire 10:25:33 choice ex wire advanced. 10:26:46 Wire removed. 10:26:53 Wire removed. unable to cross lesion. 10:27:05 FIELDER XT J 300cm guide wire ([id number]) opened to sterile field. 10:27:27 Fielder XT wire advanced. 10:30:11 Inflation number: 2 The EMERGE OTW 1.5 x 20 balloon ([id number]) was reinflated across the Dist RCA1, to 17 MALCOLM for 0:10 (min:sec). 10:30:46 Balloon removed over the wire. 10:32:33 Inflate balloon Inflation number: 1 A EMERGE OTW 2.0 x 20 balloon ([id number]) was prepped and advanced across the Dist RCA, then inflated to 11 MALCOLM for 0:09 (min:sec). 10:32:42 Inflation number: 2 The EMERGE OTW 2.0 x 20 balloon ([id number]) was reinflated across the Dist RCA, to 11 MALCOLM for 0:05 (min:sec). 10:33:43 Balloon removed over the wire. 10:35:39 Place stent Inflation Number: 1 A JAYCEE OTW 2.25 x 15 stent ([id number]) was prepped and advanced across the Prox RCA. The stent was deployed at 13 MALCOLM for 0:08 (min:sec). 10:36:51 EXOSEAL 6Fr (EX600) opened to sterile field. 10:37:08 Guide catheter removed. 10:37:19 Sheath removed intact; hemostasis achieved with Exoseal to the Right Femoral artery. 10:37:22 Procedure ended.(Physican Out) 10:37:38 Fluoroscopy time 10.30 minutes. 10:37:46 Flurop Dose total: 953 10:37:46 Fluoroscopy dose: 953 mGy 10:37:50 Contrast amount:Isovue 300 130ml. 10:37:52 Sharps counted by scrub and verified by R.N. 10:37:54 Insertion/operative site no bleeding no hematoma. 10:37:58 Post-op/insertion site Right Femoral artery dressed using a 4 x 4 and Tegaderm. 10:37:59 Post Procedure Pulses reassessed and unchanged 10:38:04 Post-procedure physical assessment completed. ASA score P 2 - A patient with mild systemic disease as per Gerry Young MD. 10:38:08 Post procedure rhythm: unchanged. 10:38:11 Estimated blood loss: 10 ml 10:38:13 Post procedure instruction explained to patient.Patient verbalizes understanding. 10:38:47 Procedure type changed to Cath procedure, Diagnostic procedure, LHC, LHC w/Coronaries, PCI procedure, Coronary Stent, Coronary Stent Initial, PTCA, PTCA Initial 10:38:49 Procedure and supply charges have been captured, reviewed, submitted and are correct. 10:39:24 Procedure Complication : No complications 10:39:26 Vital chart was stopped 10:39:33 See physician's report for complete and final results. 10:39:36 Report given to Pre/Post Procedure Room. 10:39:41 Patient transfered to Pre/Post Procedure Room with Stretcher. 10:39:43 Procedure ended. 10:39:43 Full Disclosure recording stopped 10:39:46 End room use (Document Last) Intervention Summary Intervention Notes Time ActionType Lesion and Equipment Action# Pressure Duration Attributes Used 10:24:17 Inflate Dist RCA1 EMERGE OTW 1 17 00:00 balloon 1.5 x 20 balloon ([id number]) 10:30:11 Reinflate Dist RCA1 EMERGE OTW 2 17 00:10 balloon 1.5 x 20 balloon ([id number]) 10:32:33 Inflate Dist RCA EMERGE OTW 1 11 00:09 balloon 2.0 x 20 balloon ([id number]) 10:32:42 Reinflate Dist RCA EMERGE OTW 2 11 00:05 balloon 2.0 x 20 balloon ([id number]) 10:35:39 Place stent Prox RCA JAYCEE OTW 2.25 1 13 00:08 x 15 stent ([id number]) Device Usage Item Name Manufacture Quantity Catalog Number Hospital Part Current Minimal Lot# / Charge Number Stock Stock Serial# Code ACIST Syringe Acist 1 23109 655874 120265 213236 20 (24554) Medical Systems Inc Bag Decanter Microtek 1 2001S 187479 90912 369653 5 (2001S) Medical Inc. Medline Cath Cardinal 1 [id number] 837960 84767 725733 5 Pack Health ([id number]) DIAGNOSTIC WIRE St Jeremy 1 735945 577797 143865 442039 30 .035 260cm J wire (777498) ACIST Hand Acist 1 25876 215794 538510 286381 5 Control (10452) Medical Systems Inc ACIST Manifold Acist 1 36382 105581 039901 805557 5 (80593) Medical Systems Inc DIAGNOSTIC Cardinal 1 WV7663 060637 93798 074580 30 Multipack 5Fr Health catheter set (RT7989) Tegaderm 4 x 4 3M 1 1626W 159107 318104 267126 5 (1626W) PERCUTANEOUS Cook Medical 1 F19816 630507 499588 5 ENTRY 19GA needle MULTIPACK Cardinal 1 896313 5 Pigtail 5 Fr Health catheter MULTIPACK JL Cardinal 1 002992 5 4.0 5Fr Health catheter SHEATH Prelude Merit 1 [id number]-4R-42-35 674361 7171790 039669 5 6Fr 0.035 Medical (UVV-2F-48-035) INFLATOR Merit Merit 1 RX8635 541006 336118 755437 15 [employer] healthcare Medical (JH8455) MULTIPACK 3DRC Cardinal 1 933402 5 5Fr catheter Health CHOICE PT Extra Estelline 1 [id number] 420059 855946 804490 5 Support J 300cm Scientific guide wire ([id number]) GUIDE 6FR XBLAD Cardinal 1 [id number] 730077 398360 328861 3 4.0 catheter Health ([id number]) EMERGE OTW 1.5 Estelline 1 [id number] 581541 848154 169984 5 09742239 x 20 balloon Scientific ([id number]) GUIDE 6FR AR Medtronic 1 [id number] 685043 19065 911690 1 2.0 SH catheter ([id number]) FIELDER XT J Panda 1 [id number] 541486 771625 400252 5 300cm guide Vascular wire ([id number]) EMERGE OTW 2.0 Estelline 1 [id number] 071731 810284 637924 5 12862950 x 20 balloon Scientific ([id number]) JAYCEE OTW 2.25 x Medtronic 1 [id number] 014128 94522 124332 5 [id number] 15 stent ([id number]) EXOSEAL 6Fr Cardinal 1 EX600 159735 359002 775713 10 (EX600) Health Signature Audit [place] Stage Time Signature Unsigned Intra-Procedure 06/10/2018 Lary Chavarria 10:40:40 AM RT(R) Signatures Monitor : Lary Chavarria Signature : RT Date : Time : [facility] [address] [place] [address]
--- NOTE | ~2018-06-10 | OP ---
PATIENT NAME: REJI BURLESON MEDICAL RECORD: [id number] :58 LOCATION:D.CAT ADMISSION DATE: SURGEON: ANASTACIA DAVIS MD DATE OF OPERATION: 06/10/2018 DATE OF SERVICE: 06/10/2018 PROCEDURES: 1. PTCA stent of RCA. 2. Left heart catheterization. 3. Selective coronary angiography. 4. Left ventriculogram. INDICATION: Coronary artery disease, previous PTCA stent of the left circumflex 5 months ago with concomitant disease of LAD and RCA. He failed to show up for repeat intervention. He now presents with anginal symptomatology. He is status post traumatic brain injury, hence not a candidate for bypass surgery. FINDINGS: Left ventriculogram was performed in standard 30-degree SETH view, reveals anteroapical hypokinesis, ejection fraction in the 30% to 35% range. SELECTIVE CORONARY ANGIOGRAPHY: 1. Left main is with no significant angiographic disease. 2. Left anterior descending is now totally occluded throughout the mid vessel. There are 2 diagonals that have mild irregularities, but no flow-limiting stenosis. 3. The left circumflex has previously placed stent. This is widely patent. The circumflex has no disease elsewise throughout its branches. 4. The right coronary has a 90% stenosis proximally, it then divides into 2 branches. The PDA has a chronic total occlusion. The distal PDA fills via left to right collaterals. PTCA STENT OF THE RCA: We attempted PTCA stent of the LAD; however, we could not cross the total occlusion in the LAD. We turned our attention to the RCA, where we were able to stent the proximal 90% stenosis, but we could not cross the PDA; however, the distal PDA fills via left to right collaterals. OVERALL IMPRESSION: Successful percutaneous transluminal coronary angioplasty stent of the right coronary artery going from 90% initial stenosis to 0% residual. Medical management for the total occlusion of the left anterior descending. TRANSINT:[id number] Voice Confirmation ID: [id number] DOCUMENT ID: [id number] ANASTACIA DAVIS MD at 1950 CC: [id number] DICTATION DATE: 06/10/18 1040 STEAMING MACHINE OPERATOR: 06/10/18 1101 DEP CLI 06/10/18 [id number] [place] [address]
[2018-06-10] MEDS ORDERED: PRINIVIL20 MG PO (08:20)
[2018-06-10 08:32] VITALS: BP 134/85; Ht 177.8 cm; Wt 78.2 kg
[2018-06-10 08:50] LABS: EOSINOPHILS 8.5 % (0-7); HEMATOCRIT 37.5 % (42.0-54.0); HEMOGLOBIN 11.7 g/dL (13.5-17.5); IMMATURE GRANULOCYTES 0.2 % (0-5); LYMPHOCYTES 22.1 % (15-50); MCH 24.7 pg (26.0-34.0); MCHC 31.2 g/dL (31.0-37.0); MCV 79.3 fL (80.0-100.0); MEAN PLATELET VOLUME 10.4 fL (7.4-10.4); MONOCYTES 10.5 % (2-11); NEUTROPHILS 57.7 % (40-80); RBC 4.73 10x6/uL (4.20-6.10); RDW 17.7 % (11.5-14.5); WBC 5.9 10x3/uL (4.8-10.8)
[2018-06-10 08:57] LABS: PLATELET COUNT 171 10x3/uL (130-400)
[2018-06-10 09:13] LABS: POTASSIUM - SERUM 3.8 mmol/L (3.5-5.1)
[2018-06-10 09:14] LABS: CREATININE - SERUM 1.3 mg/dL (0.6-1.3)
[2018-06-10 09:15] LABS: CALCIUM 7.8 mg/dL (8.5-10.1); CARBON DIOXIDE 27.8 mmol/L (21.0-32.0)
== END 2018-06-10 14:25 | disposition home or self-care (01) ==
LOC: D.CATH 08:06
PROVIDERS: Internal Medicine Interventional Cardiology
DX: I25.119 Atherosclerotic heart disease of native coronary artery with unspecified angina pectoris (principal); I25.82 Chronic total occlusion of coronary artery; Z95.5 Presence of coronary angioplasty implant and graft; Z87.820 Personal history of traumatic brain injury; Z01.812 Encounter for preprocedural laboratory examination
CPT/HCPCS: 93458; C9600